=== PATIENT | male | born 1950 | race Asian ===

== ENCOUNTER 2023-02-09 01:09 | Day surgery (SDC) | payer MEDICARE, SELFPAY ==
[2022-12-31 12:29] VITALS: BMI 25.8
--- NOTE | 2023-02-05 09:35 | SUR.PREOP ---
Patient called regarding upcoming procedure. Unable to leave message as his voice mailbox is not set up.
--- NOTE | 2023-02-09 07:24 | P.HP_ITS ---
History of Present Illness History of Present Illness Consent: Risks, benefits, and alternatives have been discussed and questions answered. Patient agrees to proceed with procedure. Chief complaint: neoplasm screening Narrative: Ajit Hoffman is a 72 year old male Presents for screening colonoscopy. Patient's most recent exam 2018 was unremarkable. Patient does have a very distant history of colon polyps. Patient reports that his current weight appetite and bowel movements are normal. Patient denies abdominal pain. He has had no bleeding. Family history is noncontributory. Review of Systems Review of Systems: Review of systems noncontributory. [facility] Social History Social History Smoking status: Never smoker Substance use type: does not use Living arrangements: other Additional living arrangements comments: with sp Meds Home Medications and Allergies Home Medications Medication Instructions Recorded Confirmed Type empagliflozin 10 mg tablet 10 mg PO DAILY 12/31/22 12/31/22 History (Jardiance) lisinopril 10 mg tablet 10 mg PO DAILY 12/31/22 12/31/22 History lovastatin 20 mg tablet 20 mg PO DAILY 12/31/22 12/31/22 History metformin 500 mg tablet 500 mg PO BID 12/31/22 12/31/22 History rivaroxaban 20 mg tablet (Xarelto) 20 mg PO DAILY 12/31/22 12/31/22 History Allergies Allergy/AdvReac Type Severity Reaction Status Date / Time No Known Allergies Allergy Verified 02/09/23 07:23 Exam Narrative: Physical exam reveals patient to be alert. Vital signs stable. HEENT exam is unremarkable. Patient is anicteric. Lungs are clear to auscultation and percussion. Heart is without murmur or extra sounds. Abdomen bowel sounds are present soft nontender with no hepatosplenomegaly. Digital external rectal exam normal. Assessment and Plan Assessment and plan (1) Encounter for screening colonoscopy: Code(s): Z12.11 - Encounter for screening for malignant neoplasm of colon Status: Acute Assessment and Plan: Patient presents today for screening colonoscopy. He appears to be at average risk for colon polyps. Further recommendations may be given after endoscopy.
[2023-02-09 07:25] VITALS: BP 141/85; PULSE 84; RESP 18; TEMP 36.4; O2SAT 100
[2023-02-09] MEDS: LACTATED RINGERS 1,000 ML 150 ML IV CONT (07:33)
[2023-02-09 07:43] LABS: Glucose Point of Care 80 mg/dl (65-105)
--- NOTE | 2023-02-09 07:45 | SUR.PREOP ---
0730: DR MORRISON MADE AWARE PT'S HEART RATE RANGING FROM 40-90s, JUMPING AROUND, PT HAS KNOWN HISTORY OF AFIB, PT DENIES ANY SYMPTOMS OR COMPLICATIONS, DR MORRISON TO SEE PT.
--- NOTE | 2023-02-09 08:15 | P.PNAN_ITS ---
Anes - Initial Pre Proc Eval Procedure: Operation Date: 02/09/23 08:30 Proposed Procedures p Screening Colonoscopy - Robbin Lewis MD Date/Time: 02/09/23 08:15 Surgeon: Robbin Lewis MD Pre Op Diagnosis: neoplasm screening Patient Data Age: 72 Gender: M Height: 1.83 m Weight: 85.3 kg Last Vital Signs Temp 97.6 F 02/09/23 07:25 Pulse 84 02/09/23 07:25 Resp 18 02/09/23 07:25 BP 141/85 H 02/09/23 07:25 Pulse Ox 100 02/09/23 07:25 O2 Del Method Room Air 02/09/23 07:25 Allergies Allergy/AdvReac Type Severity Reaction Status Date / Time No Known Allergies Allergy Verified 02/09/23 07:23 Home Medications Medication Instructions Recorded Confirmed Type empagliflozin 10 mg tablet 10 mg PO DAILY 12/31/22 12/31/22 History (Jardiance) lisinopril 10 mg tablet 10 mg PO DAILY 12/31/22 12/31/22 History lovastatin 20 mg tablet 20 mg PO DAILY 12/31/22 12/31/22 History metformin 500 mg tablet 500 mg PO BID 12/31/22 12/31/22 History rivaroxaban 20 mg tablet (Xarelto) 20 mg PO DAILY 12/31/22 12/31/22 History Laboratory Tests 02/09/23 07:40 POC Capillary Glucose 80 mg/dl (65-105) Patient hx anesthesia problems: none Family hx anesthesia problems: none Results Review: All pre-operative results and documents have been reviewed as part of the pre- operative evaluation. PMFSH Social History Social History Smoking status: Never smoker Substance use type: does not use Living arrangements: other Additional living arrangements comments: with sp Anes - Eval Final PreProcedure Day of Procedure 02/09/23 08:15 Patient weight: normal Heart: irregular rhythm Lungs: clear to auscultation Airway: Mallampati scale class II Neurological: alert and oriented Last oral intake: >/= 8 hours ASA classification: III Emergent: no Anesthetic plan: proceed Anesthesia type and monitoring: general GIVS and standard monitoring Results Review: All pre-operative results and documents have been reviewed as part of the pre- operative evaluation. Informed Consent: The patient's anesthetic plan and its attendant risks and benefits were discussed with the patient/family/POA. Questions were solicited and answers provided to the satisfaction of the patient/family/POA.
[2023-02-09] MEDS: SIMETHICONE ORAL SUSPENSION 20 MG/0.3 ML 30 ML BOTTLE 0.6 ML IRRIGATION (08:37)
[2023-02-09 08:47] VITALS: BP 90/57; PULSE 73; RESP 26; O2SAT 98
[2023-02-09 08:57] VITALS: BP 110/78; PULSE 72; RESP 20; O2SAT 100
[2023-02-09 09:07] VITALS: BP 117/88; PULSE 72; RESP 23; O2SAT 100
== END 2023-02-09 09:16 | disposition home or self-care (01) ==
PROVIDERS: PCP Family Medicine; Visit Provider Internal Medicine Gastroenterology
PROC: 0DJD8ZZ Inspection of Lower Intestinal Tract, Via Natural or Artificial Opening Endoscopic (ICD-10-PCS; CPT 45378; principal; 2023-02-09 08:30)
DX: Z12.11 Encounter for screening for malignant neoplasm of colon (principal); D12.2 Benign neoplasm of ascending colon; K64.8 Other hemorrhoids; Z79.01 Long term (current) use of anticoagulants; Z79.84 Long term (current) use of oral hypoglycemic drugs
CPT/HCPCS: 45385; 82948; 88305; J7120

== ENCOUNTER 2025-03-10 09:34 | Emergency (ER) | payer MEDICARE, SELFPAY ==
--- OUTSIDE RECORDS SUMMARY | 2025-02-15 07:00 | XMS_ITS | Continuity of Care Document ---
Author Organization [facility] Address [address] [place] [address] Phone Care Team Providers Care Public Health Teacher Name Role Phone Orion BROOKS, [facility], [facility] Unavailable Unavailab le Allergies, Adverse Reactions, Alerts Substance Reaction Status Criticality No Known Allergies Active No Inform ation Medications Medication Instructions Dosage Effective Dates (start - stop) Status Comments Xarelto 20 mg tablet TAKE 1 TABLET BY MOUTH EVERY DAY - Active lisinopril 5 mg tablet take 1 tablet by oral route every day 5 MG - Active latanoprost 0.005 % eye drops - Active lovastatin 40 mg tablet - Active Jardiance 10 mg tablet - Active metformin 500 mg tablet - Active Xarelto 20 mg tablet TAKE 1 TABLET BY MOUTH EVERY DAY - No Longer Active Procedures Procedure Date Complex e/m visit add on OFFICE/OUTPATIENT VISIT, EST ELECTROCARDIOGRAM, COMPLETE TTE W/DOPPLER, COMPLETE Results Test Name Date and Time Measure Units Reference Range Abnormal Flag Status Comments Panel Description: Not Available Final [{Url}] <Url iRemMajorVer jazmyne=1 iRemMinorVer jazmyne=5.9.4 seq_no=a18c [id number] [id number] h2zvm1w0 template_nam e=PacsEx>< Path><![CDAT A[[email or web address] [email or web address] om/?wKDmdOnQ rd+1EIdic/Dp 75ZomrOVmnXR I3Sv48qX5xX+ X/cz3vJxglFd Vec/5Sg5H5ff pknERgKP0aNJ DbDWmguEusY/ mM1i6borEr80 9ScX2yA0vxgx cfPs+x6JRPVW ]]></Path></ Url> Final Panel Description: ECHO Unknown Image ECHO 1 Advance Directives Directive Yes / No Effective Date File Name No Information Encounters Encounter Description Practice Location Reason(s) For Visit Diagnoses Date Provider Providers Copied on Encounter OFFICE/OUTPA TIENT VISIT, EST [facility] , [address] [place] [address], [id number] , tel: [phone] [facility] Hedrick annual follow up (chief complaint) Hyperlipidemia, unspecifiedEssential (primary) hypertensionUnspecif ied atrial fibrillation 5 Orionstephany Zavala. [address] [place] [address], [id number] , . tel: [phone] Referring Provider: Lucas Sears, [facility] [address] , [place], [address] . tel:[phone] [facility] , [address] [place] [address], [id number] , tel: [phone] [facility] Hedrick No Information [address] [facility] [address] [place], [place], [id number] , . tel: [phone] Referring Provider: Lucas Sears, [facility] [address], [place], [address] . tel:[phone] [facility] , [address] [place] [address], [id number] , tel: [phone] [facility] Benedicto No Information 5 Orionstephany Zavala. [address] [place], [place], [id number] , . tel: [phone] [facility], [address] [place] [address], [id number] , tel: [phone] [facility] Orthodox No Information 5 [facility] [address] [place], [place], [id number] , . tel: [phone] [facility], [address] [place] [address], [id number] , tel: [phone] [facility] Hed[place] Unspecified atrial fibrillationHyperlip idemia, unspecifiedEssential (primary) hypertension [facility] [address] [place], [place], [id number] , . tel: [phone] Family History Family Member Type Diagnosis Age At Onset No Information Payers Payer name Insurance type Covered republican ID Padmini armstrong(s) [employer] MEDICARE ADVANTAGE [address] [id number] Social History Type Description Quantity Date Captured Comments Alcohol Use Details Unknown Caffeine Use Details Unknown Tobacco Use Status No Information Smoking Status No Information Sex Male Vital Signs Date / Time: Height Weight BMI Pulse Rate Blood Pressure Temperature Respiratory Rate Body Surface Area Head Circumference Head Circ. Percentile Wt./Rogelio. Percentile BMI percentile Pulse Ox Inhaled Ox 12:57 PM 87.997 kg (194.00 lbs) 73 /min 111/83 mm[Hg] 20 /min 98 % Chief Complaint And Reason For Visit From encounter dated '02/15/2025 13:00'. annual follow up (chief complaint) Reason For Referral Reason For Referral No Information Plan Of Treatment Date Type Action Status Appointment Ajit Hoffman BOOKED History Of Present Illness Encounter Date Complaint History Of Prese nt Illness annual follow up Functional Status Date Functional Assessmen t No Information Instructions Date Instruction Additional Infor mation No Information Assessments Type Assessment Date assessment Hyperlipidemia, unspecified assessment Essential (primary) hypertension assessment Unspecified atrial fibrillation Patient Care Teams Name Effective Dates (start - stop) Status Members No Information
[2025-03-10 09:42] VITALS: BP 154/84; PULSE 94; RESP 16; TEMP 36.4; O2SAT 100
--- NOTE | 2025-03-10 09:55 | PC.NURSE ---
notified MD Patel of patient post void residual being [address] díaz catheter at this time.
[2025-03-10 09:56] LABS: Add Urine Microscopic? NO; Appearance Urine Clear (Clear); Glucose Urine UA 3+ mg/dL (Negative); Leukocyte Esterase Ur Negative LEU/UL (Negative); Nitrate Urine Negative (Negative); Specific Grav Ur 1.015 (1.001-1.035)
--- OUTSIDE RECORDS SUMMARY | 2025-03-10 09:56 | XMS_ITS | Data Portability ---
Author Organization [place] [employer], Main Office Address [address] [place] [address] Assessment Encounter Date Assessment Date Assessment LastModified by Organization Details LastModified Time 05/04/2024 05/04/2024 Assessment: Early REM onset Mod OSAHS, AHI = 21 Iron deficiency PLMD Plan: The following were reviewed and explained to the patient: [facility] home sleep study 10/24/21 AHI = 4.8 [facility] split sleep study 12/04/21 sleep onset = 12 minutes, REM onset = 80 minutes, AHI = 21, REM AHI = 32, ResMed medium AitFit F20 full face mask @ 10 cmH2O, PLMI = 32 BUN 07/15/23 24 mg% Ferritin 07/15/23 67 ng/mL Ferritin 10/18/23 107 ng/mL Ferritin 05/04/24 240 ng/mL Non-pharmacologic therapy options for periodic limb movement disorder include avoidance of aggravating drugs and substances, mental alerting activities, short daily hemodialysis for patients in renal failure, exercise, leg massage, stretching calf muscles, use of a weighted blanket and applied heat. Patient will cut down on caffeine intake. Creatinine, Vitamin E, Vitamin B12, RBC folate, Iron, TIBC, ESR, Magnesium, Hgb and Hct levels are within normal limits. Patient will continue FeSO4 325 mg + Vit C 500 mg but decrease from every other day to twice a week to keep the ferritin > 75 ng/ml. Check ferritin one week before return. We will hold off on dopaminergic therapy for now. PAP compliance downloaded and interpreted x 20 minutes. Data reviewed and explained to the patient. Average apnea/hypopnea index (AHI) is 0.9. Patient used PAP > 4 hours 65% of the time. PAP is set at 10 cmH2O. PAP will remain at 10 cmH2O. Keep ramp start at 5 cmH2O. Keep ramp duration at 30 minutes. Oxygen supplementation: none Keep EPR +3 time study observer. Keep humidifier level at 5. Keep tube temperature at 82 F. Patient is benefiting from PAP therapy. Encouraged patient to maintain PAP use more than 70% of the time. Statement of PAP use and benefits will be sent to the home care store. Educated the patient on problems and solutions associated with positive airway pressure (PAP) use. Difficulty tolerating pressure, mask leaks, intolerance of interface, nasal congestion, claustrophobic response, dry mouth, and unintentional mask removal during sleep were covered. Patient's mask leaks air. We will ensure the mask is situated properly. Patient can wear protective eye covering during sleep, and the mask can be resized. Dry mouth is a normal occurrence for people who just start out on PAP therapy because they are not used to air blowing in to the throat to hold open. Dry mouth is exacerbated for people who wear nasal PAP mask and whose jaw drops open during sleep. Not only does this create a much less efficient therapy because of leakage, it also causes dry mouth. There are a couple solutions to help prevent this type of problem. A simple solution would be to wear a chinstrap which essentially holds the jaw in place. A second solution would be a switch to a full face mask which covers both the nose and mouth. Although this is another easy solution, using a full face mask for some could seem claustrophobic or confining. There is no silver bullet solution as no single mask is right for everybody. Sometimes it takes a bit of experimentation to find a PAP mask which best meets the patient's needs as well as fits comfortably. Another tactic is to use a humidifier on your PAP machine. Most new PAP machines have integrated humidifiers. Humidification is williamson when dealing with symptoms of dry mouth because the humidifier can supply both warm and room temperate air. Even a small amount of humidity in the airflow will help nasal passages to stay hydrated. If a person is using both a full face mask and a PAP machine with a heated humidifier and is still experiencing dry mouth, an ill-fitted PAP mask might be causing the problem. Leakage can be caused by a mask that is to large or small, the wrong style mask, the cushion is degraded or simply because the mask's straps aren't adjusted correctly. If leakage occurs, dry air from the room can leak in while humidification escapes. The result is reduced humidification within the circuit and resulting in dry throat and mouth. Finally, beyond factors involving the PAP machine and mask, dry mouth can also be caused or worsened by dehydration. The general recommendation to during eight 8 oz. glasses of water a day might be too little for many people. When people drink large amounts of coffee or other caffeine beverages, or sweat a lot during the day, making sure to rehydrate is an important part of PAP therapy. Provided the patient with a list of local home care stores where positive airway pressure (PAP) units, accoutrement, and services are available. Home care store selection is based on patient's insurance carrier. Patient will setup an appointment with [facility] for supplies and pressure adjustments. A major predictor of success with use of PAP is follow-up with both the respiratory supplier and the treating physician. The download results can show the treating physician information about adherence to treatment, residual AHI while on treatment and presence of large mask leakage. This information is especially helpful if the patient has residual sleepiness despite treatment. General information on sleep disordered breathing, evaluation of sleep disordered breathing, treatment with PAP therapy, and living with PAP therapy were covered. We discussed with the patient the impact of weight on: Sleep disordered breathing DM We discussed with the patient the benefit of PAP therapy on: Sleep disordered breathing Glaucoma Atrial fibrillation Mild TR Mod RVE DM Educated the patient on sleep hygiene measures. Relaxing rituals to rest easy, understanding foods with positive and negative impact on sleep, creating a peaceful sleep environment, timing of exercise, using herbal sleep aids, and practicing sleep-friendly meditation were covered. To determine how much sleep is needed, the patient will assess where he falls on the spectrum, examine what lifestyle factors such as work schedules and stress are affecting the quality and quantity of sleep. In general, adults need 7-9 hours of sleep. Educated the patient regarding foods that promote sleep. These include but are not limited to cherries, bananas, toast, oatmeal, and warm milk. Educated the patient regarding foods and drinks to avoid before bedtime. These include but are not limited to aged cheese, chocolate, spicy foods, tomato-based sauces, soy, ginseng tea and processed meat. Advocated influenza vaccination annually and pneumonia vaccination HERIBERTO. Advocated weight loss through diet and exercise. Patient's ideal body weight according to height and gender is up to 185 lbs. Encouraged patient to adjust caloric intake to maintain/achieve ideal body weight, emphasizing on fruits, vegetables, whole grains, and fat-free or low-fat products. These include lean meats, poultry, fish, beans, eggs, and nuts and foods that are low in saturated fats, trans-fats, cholesterol, salt (sodium), and glycemic index. Stressed the importance of regular exercise up to the patient's capacity limits. In this case, we recommend 20 min daily walking, 2 days a week of resistance training. Patient to monitor BP daily and bring records to PCP for further management. Follow-up: 6 months, October 2024 [email or web address] Not available 05/05/2024 14:03:22 10/09/2024 10/09/2024 Patient was not seen by the provider. [email or web address] Not available 10/09/2024 14:23:50 11/02/2024 11/02/2024 Assessment: Early REM onset Mod OSAHS, AHI = 21 Iron deficiency PLMD Plan: The following were reviewed and explained to the patient: [facility] home sleep study 10/24/21 AHI = 4.8 [facility] split sleep study 12/04/21 sleep onset = 12 minutes, REM onset = 80 minutes, AHI = 21, REM AHI = 32, ResMed medium AitFit F20 full face mask @ 10 cmH2O, PLMI = 32 BUN 07/15/23 24 mg% Ferritin 07/15/23 67 ng/mL Ferritin 10/18/23 107 ng/mL Ferritin 05/04/24 240 ng/mL Ferritin 10/06/24 224 mg/mL Non-pharmacologic therapy options for periodic limb movement disorder include avoidance of aggravating drugs and substances, mental alerting activities, short daily hemodialysis for patients in renal failure, exercise, leg massage, stretching calf muscles, use of a weighted blanket and applied heat. Patient will cut down on caffeine intake. Creatinine, Vitamin E, Vitamin B12, RBC folate, Iron, TIBC, ESR, Magnesium, Hgb and Hct levels are within normal limits. Patient will continue FeSO4 325 mg + Vit C 500 mg but decrease from twice a week to once a week to keep the ferritin > 75 ng/ml. Check ferritin one week before return. We will hold off on dopaminergic therapy for now. PAP compliance downloaded and interpreted x 20 minutes. Data reviewed and explained to the patient. Average apnea/hypopnea index (AHI) is 1.7. Patient used PAP > 4 hours 91% of the time. PAP is set at 10 cmH2O. PAP will remain at 10 cmH2O. Keep ramp start at 5 cmH2O. Keep ramp duration at 30 minutes. Oxygen supplementation: none Keep EPR +3 time study observer. Increase humidifier level from 5 to 6. Decrease tube temperature at 82 to 76 F. Patient is benefiting from PAP therapy. Encouraged patient to maintain PAP use more than 70% of the time. Statement of PAP use and benefits will be sent to the home care store. Educated the patient on problems and solutions associated with positive airway pressure (PAP) use. Difficulty tolerating pressure, mask leaks, intolerance of interface, nasal congestion, claustrophobic response, dry mouth, and unintentional mask removal during sleep were covered. Patient's mask leaks air. We will ensure the mask is situated properly. Patient can wear protective eye covering during sleep, and the mask can be resized. Dry mouth is a normal occurrence for people who just start out on PAP therapy because they are not used to air blowing in to the throat to hold open. Dry mouth is exacerbated for people who wear nasal PAP mask and whose jaw drops open during sleep. Not only does this create a much less efficient therapy because of leakage, it also causes dry mouth. There are a couple solutions to help prevent this type of problem. A simple solution would be to wear a chinstrap which essentially holds the jaw in place. A second solution would be a switch to a full face mask which covers both the nose and mouth. Although this is another easy solution, using a full face mask for some could seem claustrophobic or confining. There is no silver bullet solution as no single mask is right for everybody. Sometimes it takes a bit of experimentation to find a PAP mask which best meets the patient's needs as well as fits comfortably. Another tactic is to use a humidifier on your PAP machine. Most new PAP machines have integrated humidifiers. Humidification is williamson when dealing with symptoms of dry mouth because the humidifier can supply both warm and room temperate air. Even a small amount of humidity in the airflow will help nasal passages to stay hydrated. If a person is using both a full face mask and a PAP machine with a heated humidifier and is still experiencing dry mouth, an ill-fitted PAP mask might be causing the problem. Leakage can be caused by a mask that is to large or small, the wrong style mask, the cushion is degraded or simply because the mask's straps aren't adjusted correctly. If leakage occurs, dry air from the room can leak in while humidification escapes. The result is reduced humidification within the circuit and resulting in dry throat and mouth. Finally, beyond factors involving the PAP machine and mask, dry mouth can also be caused or worsened by dehydration. The general recommendation to during eight 8 oz. glasses of water a day might be too little for many people. When people drink large amounts of coffee or other caffeine beverages, or sweat a lot during the day, making sure to rehydrate is an important part of PAP therapy. Provided the patient with a list of local home care stores where positive airway pressure (PAP) units, accoutrement, and services are available. Home care store selection is based on patient's insurance carrier. Patient will setup an appointment with [facility] for supplies and pressure adjustments. A major predictor of success with use of PAP is follow-up with both the respiratory supplier and the treating physician. The download results can show the treating physician information about adherence to treatment, residual AHI while on treatment and presence of large mask leakage. This information is especially helpful if the patient has residual sleepiness despite treatment. General information on sleep disordered breathing, evaluation of sleep disordered breathing, treatment with PAP therapy, and living with PAP therapy were covered. We discussed with the patient the impact of weight on: Sleep disordered breathing DM We discussed with the patient the benefit of PAP therapy on: Sleep disordered breathing Glaucoma Atrial fibrillation Mild TR Mod RVE DM Educated the patient on sleep hygiene measures. Relaxing rituals to rest easy, understanding foods with positive and negative impact on sleep, creating a peaceful sleep environment, timing of exercise, using herbal sleep aids, and practicing sleep-friendly meditation were covered. To determine how much sleep is needed, the patient will assess where he falls on the spectrum, examine what lifestyle factors such as work schedules and stress are affecting the quality and quantity of sleep. In general, adults need 7-9 hours of sleep. Educated the patient regarding foods that promote sleep. These include but are not limited to cherries, bananas, toast, oatmeal, and warm milk. Educated the patient regarding foods and drinks to avoid before bedtime. These include but are not limited to aged cheese, chocolate, spicy foods, tomato-based sauces, soy, ginseng tea and processed meat. Advocated influenza vaccination annually and pneumonia vaccination HERIBERTO. Advocated weight loss through diet and exercise. Patient's ideal body weight according to height and gender is up to 185 lbs. Encouraged patient to adjust caloric intake to maintain/achieve ideal body weight, emphasizing on fruits, vegetables, whole grains, and fat-free or low-fat products. These include lean meats, poultry, fish, beans, eggs, and nuts and foods that are low in saturated fats, trans-fats, cholesterol, salt (sodium), and glycemic index. Stressed the importance of regular exercise up to the patient's capacity limits. In this case, we recommend 20 min daily walking, 2 days a week of resistance training. Patient to monitor BP daily and bring records to PCP for further management. Follow-up: 9 months, July 2025 [email or web address] Not available 11/02/2024 09:04:17 Plan of Treatment Reminders Order Date Submit Date Provider Last Modified By Organization Details Last Modified Time Details Appointments Follow Up 2025 02:30P Melany Vyas NP Not available Not available Not available Any 15 2025 07:30A Melany Blackwood MD Not available Not available Not available Lab lipid panel, serum 2024 025 [place], [address], [place], [address], 01/01/2025 08:49:45 comprehen zohrae metabolic 1998 panel, serum or plasma 2024 025 [facility], [address], [place], [address], 11/29/2024 12:26:35 TSH + free T4, serum 2024 025 [facility], [address], [place], [address], 11/29/2024 12:26:36 HbA1c (hemoglob in A1c), blood 2024 025 [facility], [address], [place], [address], 11/29/2024 12:26:35 CBC w/ auto diff 2024 025 [facility], [address], [place], [address], 01/01/2025 08:49:45 ferritin, serum or plasma [address] (Lab), [address] [place], [address], 11/02/2024 09:00:35 ferritin, serum or plasma 2024 025 [facility] (Lab), [address] [place], [address], 10/09/2024 09:44:08 Referral None recorded. Procedures None recorded. Surgeries None recorded. Imaging None recorded. Medication Orders ferrous sulfate 325 mg (65 mg iron) tablet 2024 025 [place] [facility], [address], [address], [place], [place], [id number], 11/02/2024 09:00:37 Vitamin C 500 mg tablet 2024 025 CHARLI [facility], [address], [address], [place], [place], [id number], 11/02/2024 09:00:37 ferrous sulfate 325 mg (65 mg iron) tablet 2024 025 [place] [facility], [address], [address], [place], [place], [id number], 05/05/2024 14:04:03 Vitamin C 500 mg tablet 2024 025 CHARLI [facility], [address], [address], [place], [place], [id number], 05/05/2024 14:04:03 Patient TargetsNo targets recorded. Patient Instructions Encounter Date Encounter Id Patient Instructions Last Modified By Organization Details Last Modified Time 10/09/2024 [id number] dementia rating scale-2* CHARLI Not available 10/09/2024 21:22:35 advance care planning: care instructions [email or web address] Not available 10/09/2024 14:23:53 advance directiv es: care instructions [email or web address] Not available 10/09/2024 14:23:53 [place] Advance Directives [email or web address] Not available 10/09/2024 14:23:53 Personalized a lt Plan and Screening Recommendations Advance Directives - Do you have one? Advance Directives - Do we have your advance directive on file in your health record? Primary Prevention/Interven tion (prevents or decreases the chance of common diseases from occurring) Smoking Risk: Alcohol Misuse Screening: Weight: Physical activity: Nutrition: Fall Risk (screened today): Vaccines Pneumococcal: Influenza: Chronic Disease Risks Stroke: Active diagnosis, Continue current treatment plan Heart Attack: Active diagnosis, Continue current treatment plan Clogging of the Arteries: Active diagnosis, Continue current treatment plan Diabetes: Active diagnosis, Continue current treatment plan Secondary Prevention/Interven tion (detects treatable diseases before they may cause symptoms, disability, or ) Prostate Cancer Screening: Colon Cancer Screening: Date Screening Last Performed: Eye Disease Screening: Your next exam in: Dementia Risk: Depression Screening: Active diagnosis, Continue current treatment plan Not available 10/09/2024 13:59:16 11/20/2024 [id number] dementia rating scale-2* [email or web address] Not available 11/20/2024 15:39:41 multi-dimensiona l health assessment questionnaire* CHARLI Not available 11/20/2024 15:44:37 Reason for Referral None Reported. Results Created Date Observation Date Name Description Value Unit Range Abnormal Flag Note LastModifiedBy Organization Detail LastModifiedTime 05/04/1905/05/2024 KATJA TIN ferritin 240 NG/mL 30-400 normal Not Available [facility] ([facility]) [address] [facility], [place], [address], 05/05/2024 12:36:41 10/07/19 25 10/07/2024 KATJA TIN ferritin 224 NG/mL 30-400 normal Not Available [facility] ([facility]) [address] [place], [address], 10/07/2024 04:36:06 03/05/20 25 03/06/2025 TSH+F REE T4 TSH 5.300 uIU/m L 0.450- 4.500 above high normal Not Available [facility] ([facility]) [address] [facility] [place], [address], 03/06/2025 03:08:51 03/05/2003/06/2025 TSH+F REE T4 T4,free(dire ct) 1.46 NG/dL 0.82-1 .77 normal Not Available [facility] ([facility]) [address] [place], [address], 03/06/2025 03:08:51 03/05/20 25 03/05/2025 CBC WITH DIFFE RENTI AL/PL ATELE T WBC 4.9 x10e3 /uL 3.4-10 .8 normal Not Available [facility] ([facility]) [address] [place], [address], 03/06/2025 03:08:52 03/05/20 25 03/05/2025 CBC WITH DIFFE RENTI AL/PL ATELE T RBC 5.23 x10e6 /uL 4.14-5 .80 normal Not Available [facility] ([facility]) [address] [place], [address], 03/06/2025 03:08:52 03/05/20 25 03/05/2025 CBC WITH DIFFE RENTI AL/PL ATELE T hemoglobin 15.8 g/dL 13.0-1 7.7 normal Not Available [facility] ([facility]) [address] [place], [address], 03/06/2025 03:08:52 03/05/20 25 03/05/2025 CBC WITH DIFFE RENTI AL/PL ATELE T hematocrit 49.1 % 37.5-5 1.0 normal Not Available [facility] ([facility]) [address] [facility], [place], [address], 03/06/2025 03:08:52 03/05/20 25 03/05/2025 CBC WITH DIFFE RENTI AL/PL ATELE T MCV 94 fL 79-97 normal Not Available [facility] ([facility]) [address] [facility], [place], [address], 03/06/2025 03:08:52 03/05/20 25 03/05/2025 CBC WITH DIFFE RENTI AL/PL ATELE T MCH 30.2 pg 26.6-3 3.0 normal Not Available [facility] ([facility]) [address] [facility], [place], [address], 03/06/2025 03:08:52 03/05/20 25 03/05/2025 CBC WITH DIFFE RENTI AL/PL ATELE T MCHC 32.2 g/dL 31.5-3 5.7 normal Not Available [facility] ([facility]) [address] [place], [address], 03/06/2025 03:08:52 03/05/20 25 03/05/2025 CBC WITH DIFFE RENTI AL/PL ATELE T RDW 12.2 % 11.6-1 5.4 Not Available [facility] ([facility]) [address] [place], [address], 03/06/2025 03:08:52 03/05/20 25 03/05/2025 CBC WITH DIFFE RENTI AL/PL ATELE T platelets 235 x10e3 /uL 150-45 0 normal Not Available [facility] ([facility]) [address] [place], [address], 03/06/2025 03:08:52 03/05/20 25 03/05/2025 CBC WITH DIFFE RENTI AL/PL ATELE T neutrophils 48 % not estab. normal Not Available [facility] ([facility]) [address] [facility], [place], [address], 03/06/2025 03:08:52 03/05/20 25 03/05/2025 CBC WITH DIFFE RENTI AL/PL ATELE T lymphs 35 % not estab. normal Not Available [facility] ([facility]) [address] [facility], [place], [address], 03/06/2025 03:08:52 03/05/20 25 03/05/2025 CBC WITH DIFFE RENTI AL/PL ATELE T monocytes 9 % not estab. normal Not Available [facility] ([facility]) [address] [facility], [place], [address], 03/06/2025 03:08:52 03/05/20 25 03/05/2025 CBC WITH DIFFE RENTI AL/PL ATELE T eos 7 % not estab. normal Not Available [facility] ([facility]) [address] [facility], [place], [address], 03/06/2025 03:08:52 03/05/20 25 03/05/2025 CBC WITH DIFFE RENTI AL/PL ATELE T basos 1 % not estab. normal Not Available [facility] ([facility]) [address] [facility], [place], [address], 03/06/2025 03:08:52 03/05/20 25 03/05/2025 CBC WITH DIFFE RENTI AL/PL ATELE T immature cells [employer] Not Available [facility] ([facility]) [address] [facility], [place], [address], 03/06/2025 03:08:52 03/05/20 25 03/05/2025 CBC WITH DIFFE RENTI AL/PL ATELE T neutrophils (absolute) 2.4 x10e3 /uL 1.4-7. 0 normal Not Available [facility] ([facility]) [address] [facility], [place], [address], 03/06/2025 03:08:52 03/05/20 25 03/05/2025 CBC WITH DIFFE RENTI AL/PL ATELE T lymphs (absolute) 1.7 x10e3 /uL 0.7-3. 1 normal Not Available [facility] ([facility]) [address] [facility], [place], [address], 03/06/2025 03:08:52 03/05/20 25 03/05/2025 CBC WITH DIFFE RENTI AL/PL ATELE T monocytes(ab solute) 0.5 x10e3 /uL 0.1-0. 9 normal Not Available [facility] ([facility]) [address] [facility], [place], [address], 03/06/2025 03:08:52 03/05/20 25 03/05/2025 CBC WITH DIFFE RENTI AL/PL ATELE T eos (absolute) 0.3 x10e3 /uL 0.0-0. 4 normal Not Available [facility] ([facility]) [address] [facility], [place], [address], 03/06/2025 03:08:52 03/05/20 25 03/05/2025 CBC WITH DIFFE RENTI AL/PL ATELE T baso (absolute) 0.0 x10e3 /uL 0.0-0. 2 normal Not Available [facility] ([facility]) [address] [place], [address], 03/06/2025 03:08:52 03/05/20 25 03/05/2025 CBC WITH DIFFE RENTI AL/PL ATELE T immature granulocytes 0 % not estab. Not Available [facility] ([facility]) [address] [facility] [place], [address], 03/06/2025 03:08:52 03/05/20 25 03/05/2025 CBC WITH DIFFE RENTI AL/PL ATELE T immature grans (abs) 0.0 x10e3 /uL 0.0-0. 1 Not Available [facility] ([facility]) [address] [facility], [place], [address], 03/06/2025 03:08:52 03/05/20 25 03/05/2025 CBC WITH DIFFE RENTI AL/PL ATELE T NRBC INSPECTOR AND UNLOADER Not Available [facility] ([facility]) [address] [facility], [place], [address], 03/06/2025 03:08:52 03/05/2003/05/2025 CBC WITH DIFFE RENTI AL/PL ATELE T hematology comments: INSPECTOR AND UNLOADER Not Available [facility] ([facility]) [address] [facility], [place], [address], 03/06/2025 03:08:52 03/05/20 25 03/06/2025 COMP. METAB OLIC PANEL (12) glucose 105 mg/dL 70-99 above high normal Not Available [facility] ([facility]) [address] [facility], [place], [address], 03/06/2025 03:08:52 03/05/20 25 03/06/2025 COMP. METAB OLIC PANEL (12) BUN 32 mg/dL 8-27 above high normal Not Available [facility] ([facility]) [address] [facility], [place], [address], 03/06/2025 03:08:52 03/05/20 25 03/06/2025 COMP. METAB OLIC PANEL (12) creatinine 1.37 mg/dL 0.76-1 .27 above high normal Not Available [facility] ([facility]) [address] [facility], [place], [address], 03/06/2025 03:08:52 03/05/20 25 03/06/2025 COMP. METAB OLIC PANEL (12) eGFR 55 mL/mi n/1.7 3 >59 below low normal Not Available [facility] ([facility]) [address] [place], [address], 03/06/2025 03:08:52 03/05/20 25 03/06/2025 COMP. METAB OLIC PANEL (12) BUN/creatini ne ratio 23 10-24 normal Not Available [facility] ([facility]) [address] [place], [address], 03/06/2025 03:08:52 03/05/20 25 03/06/2025 COMP. METAB OLIC PANEL (12) sodium 138 mmol/ L 134-14 4 normal Not Available [facility] ([facility]) [address] [place], [address], 03/06/2025 03:08:52 03/05/20 25 03/06/2025 COMP. METAB OLIC PANEL (12) potassium 4.8 mmol/ L 3.5-5. 2 normal Not Available [facility] ([facility]) [address] [place], [address], 03/06/2025 03:08:52 03/05/20 25 03/06/2025 COMP. METAB OLIC PANEL (12) chloride 102 mmol/ L 96-106 normal Not Available [facility] ([facility]) [address] [facility] [place], [address], 03/06/2025 03:08:52 03/05/20 25 03/06/2025 COMP. METAB OLIC PANEL (12) calcium 10.1 mg/dL 8.6-10 .2 normal Not Available [facility] ([facility]) [address] [facility] [place], [address], 03/06/2025 03:08:52 03/05/20 25 03/06/2025 COMP. METAB OLIC PANEL (12) protein, total 7.1 g/dL 6.0-8. 5 normal Not Available [facility] ([facility]) [address] [place], [address], 03/06/2025 03:08:52 03/05/20 25 03/06/2025 COMP. METAB OLIC PANEL (12) albumin 4.6 g/dL 3.8-4. 8 normal Not Available [facility] ([facility]) [address] [place], [address], 03/06/2025 03:08:52 03/05/20 25 03/06/2025 COMP. METAB OLIC PANEL (12) globulin, total 2.5 g/dL 1.5-4. 5 Not Available [facility] ([facility]) [address] [place], [address], 03/06/2025 03:08:52 03/05/20 25 03/06/2025 COMP. METAB OLIC PANEL (12) bilirubin, total 0.5 mg/dL 0.0-1. 2 normal Not Available [facility] ([facility]) [address] [place], [address], 03/06/2025 03:08:52 03/05/20 25 03/06/2025 COMP. METAB OLIC PANEL (12) alkaline phosphatase 61 IU/L 47-123 normal Not Available [facility] ([facility]) [address] [place], [address], 03/06/2025 03:08:52 03/05/20 25 03/06/2025 COMP. METAB OLIC PANEL (12) AST (SGOT) 20 IU/L 0-40 normal Not Available [facility] ([facility]) [address] [place], [address], 03/06/2025 03:08:52 03/05/20 25 03/06/2025 LIPID PANEL cholesterol, total 176 mg/dL 100-19 9 normal Not Available [facility] ([facility]) [address] [place], [address], 03/06/2025 03:08:53 03/05/20 25 03/06/2025 LIPID PANEL triglyceride s 76 mg/dL 0-149 normal Not Available [facility] ([facility]) [address] [place], [address], 03/06/2025 03:08:53 03/05/20 25 03/06/2025 LIPID PANEL HDL cholesterol 46 mg/dL >39 normal Not Available [facility] ([facility]) [address] [place], [address], 03/06/2025 03:08:53 03/05/20 25 03/06/2025 LIPID PANEL VLDL cholesterol david 14 mg/dL 5-40 Not Available [facility] ([facility]) [address] [place], [address], 03/06/2025 03:08:53 03/05/20 25 03/06/2025 LIPID PANEL LDL [facility] 116 mg/dL 0-99 above high normal Not Available [facility] (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) [address] [place], [address], 03/06/2025 03:08:53 03/05/20 25 03/05/2025 HEMOG LOBIN A1C hemoglobin A1C 6.1 % 4.8-5. 6 above high normal Predi abete s: 5.7 - 6.4 Diabe hallie: >6.4 Glyce choco contr ol for adult s with diabe hallie: <7.0 Not Available [facility] ([facility]) [address] [place], [address], 03/06/2025 03:08:53 11/2002/15/2025 imagi ng/di hardikos tic resul t No observ ation record ed. [facility] [address], [place], [address], 02/15/2025 18:04:55 Result Notes None recorded. Problems Name Problem SNOMED Code Status Onset Date Resolution Date Notes Provider Name and Address Organization Details Recorded Time Herpes zoster 8488184 Active Not Available [facility] 3 02:06:21 Atrial fibrillati on 05210847 Active Not Available [facility] 3 02:06:21 Hyperlipid emia 76266589 Active Not Available [facility] 3 02:06:21 Hyperglyce kam 47241122 Completed Not Available [facility] 3 06:02:42 Onychomyco sis 598586119 Active 2020 Not Available [facility] 3 02:06:21 Obstructiv e sleep apnea syndrome 01530539 Active 2022 Not Available [facility] 3 02:06:21 Essential hypertensi on 45926849 Active 2022 Not Available [facility] 3 02:06:21 Diabetes mellitus 89082359 Active 2022 Not Available [facility] 3 02:06:21 Periodic limb movement disorder 084995820 Active 2023 Pancho Blackwood MD [address] [place] [address], [place], [address] , [facility] [employer] 4 09:39:52 Iron deficiency 71120276 Active 2023 Pancho Blackwood MD [address], [address], [place], [address] , [facility] 4 08:53:25 Inadequate intake of vitamin D and/or vitamin D derivative 865133502 Active 2023 JOHNSON Goff [address], [address], [place], [address] , [facility] [employer] 4 09:16:58 Notes:Medical History: Glauc rodney Early REM onset Moderate OSAHS, AHI = 21, 12/04/21, on CPAP c/o IVRC Atrial fibrillation on Xarelto EF 55% Mild TR Mod RVE Mod CASSIDY Hypothyroidism T2DM with microalbuminuria Iron deficiency PLMD Herpes zoster Onychomycosis Procedure History: Bilateral cataract extraction with IOL 2013 Colonoscopy with tubular adenoma excision 2022 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 Procedures Surgical History Date Name Laterality Status Provider Name and Address Organization Details Recorded Time 5 Medicare Wellness CPT Code, subsequent completed Jimi Shell, RMA [facility] 11/20/2024 15:04:25 5 Medicare Wellness CPT Code, subsequent completed Jimi Shell, RMA [facility] 10/09/2024 13:59:17 4 Medicare Wellness CPT Code, subsequent completed Shahla Andersen RN [facility] 10/18/2023 15:56:44 3 colonoscopy completed Divine Guardado RN [facility] 02/09/2023 10:05:41 3 Medicare Wellness CPT Code, subsequent completed Isabel Smith MD [address] [place] [address], [address], [facility] 10/14/2022 09:03:08 Imaging Results None recorded. Procedure Notes None recorded. Medical Equipment None Reported. Allergies No known drug allergies Medications Name Sig Start Date Stop Date Status Note LastModified by Organization Details LastModified Time Prescriptio n - Prior Authorizati on Request active Not Available Not Available N ot Available latanoprost 0.005 % eye drops active Not Available Not Available Not Available metformin 500 mg tablet TAKE 2 TABLET BY MOUTH TWICE DAILY WITH FOOD 2024 active Not Available Not Available Not Avai lable Vitamin C 500 mg tablet Take 1 tablet every week by oral route. 2024 active Not Available Not Available Not Avai lable aspirin 650 mg tablet,kaleigh yed release Take 1 tablet every 6 hours by oral route. 10/08 completed Not Available Not Available Not Available lovastatin 40 mg tablet 05/04 completed Not Available Not Available Not Available peg-electro lyte solution 420 gram oral solution 10/27 completed Not Available Not Available Not Available ferrous sulfate 325 mg (65 mg iron) tablet Take 1 tablet every week by oral route. 2024 active Not Available Not Available Not Avai lable lisinopril 10 mg tablet TAKE 1 TABLET BY MOUTH DAILY 2023 active Not Available Not Available Not Avai lable pravastatin 20 mg tablet Take 1 tablet every day by oral route at bedtime. 08/18 completed Not Available Not Available Not Available lisinopril 5 mg tablet 05/04 completed Not Available Not Available Not Available gabapentin 100 mg capsule Take 1 capsule 3 times a day by oral route as needed. 12/10 completed Not Available Not Available Not Available lovastatin 20 mg tablet TAKE 1 TABLET BY MOUTH DAILY active Not Available Not Available No t Available sodium,pota ssium,mag sulfates 17.5 gram-3.13 gram-1.6 gram oral soln TAKE DIRECTED 07/01 completed Not Available Not Available Not Available Lumigan 0.01 % eye drops 10/14 completed Not Available Not Available Not Available Xarelto 20 mg tablet TAKE 1 TABLET BY MOUTH EVERY DAY active Not Available Not Available No t Available Jardiance 10 mg tablet 1 po qday active Not Available Not Available No t Available Fluzone High-Dose 8256-9343 (PF) 180 mcg/0.5 mL intramuscul ar syringe 10/27 completed Not Available Not Available Not Available Fluzone High-Dose (PF) 180 mcg/0.5 mL intramuscul ar syringe PHARMACIS T ADMINISTE RED IMMUNIZAT ION ADMINISTE RED AT TIME OF DISPENSIN G 10/27 completed Not Available Not Available Not Available ID NOW COVID-19 Test Kit DIRECTED active Not Available Not Available No t Available Vitals Date Recorded Body height Body mass index (BMI) Body weight Body temperature Heart rate Oxygen saturation Systolic And Diastolic Provider Name and Address Organization Details Last Updated DateTime 5 180.34 cm 26.9 kg/m2 79218.3 3 g 97.3 [degF] 78 /min 97 % 136/80 mm[Hg] Divine Guardado RN [facility] [employer] 5 10:10:04 Date Recorded Heart rate Respiratory rate Provider N tameka and Address Organization Details Last Updated DateTime 05/04/2024 73 /min 15 /min Pancho Blackwood MD [address], [facility] [address], [place], [address], [facility] [employer] 05/04/2024 08:48:11 Date Recorded Body height Body mass index (BMI) Body weight Body temperature Heart rate Oxygen saturation Systolic And Diastolic Provider Name and Address Organization Details Last Updated DateTime 180.34 cm 26.9 kg/m2 43341.3 3 g 97.3 [degF] 73 /min 98 % 118/68 mm[Hg] Zenaida Andrade MA [facility] [employer] 5 08:25:44 Date Recorded Body height Body mass index (BMI) Body weight Body temperature Heart rate Oxygen saturation Systolic And Diastolic Provider Name and Address Organization Details Last Updated DateTime 5 180.34 cm 25.8 kg/m2 75302.5 9 g 98.3 [degF] 80 /min 98 % 120/62 mm[Hg] CHANTE Maher [place] [employer] [facility] [employer] 14:11:34 Date Recorded Heart rate Heart rate Respiratory rate Provider Name and Address Organization Details Last Updated DateTime 11/02/2024 61 /min 61 /min 14 /min Pancho Blackwood MD [address], [place], [address], [facility] [employer] 11/02/2024 09:02:00 Date Recorded Body height Body mass index (BMI) Body weight Body temperature Oxygen saturation Systolic And Diastolic Provider Name and Address Organization Details Last Updated DateTime 5 180.34 cm 26.5 kg/m2 82175.5 5 g 98.1 [degF] 98 % 110/64 mm[Hg] Sarai Gipson MA [facility] [employer] 5 08:39:54 Date Recorded Body height Body mass index (BMI) Body weight Body temperature Heart rate Oxygen saturation Systolic And Diastolic Provider Name and Address Organization Details Last Updated DateTime 08/25/202 5 180.34 cm 26.8 kg/m2 76227.7 4 g 97.2 [degF] 94 /min 98 % 110/70 mm[Hg] CHANTE Maher [place] [employer] [facility] 5 15:12:38 Social History Question Answer Notes LastModified by Organizat ion Details LastModified Time Tobacco Smoking Status Former Smoker Not Available [facility] 05/27/2022 05:55:00 What Is Your Level Of Caffeine Consumption? Occasional [id number] Information not available 05/27/2022 How Much Tobacco Do You Chew? None [id number] Information not available 05/27/2022 In The 14 Days Before Symptom Onset, Have You Had Close Contact With A Laboratory-confi rmed COVID-19 While That Case Was Ill? No [id number] Information not available 05/27/2022 In The 14 Days Before Symptom Onset, Have You Had Close Contact With A Person Who Is Under Investigation For COVID-19 While That Person Was Ill? No [id number] Information not available 05/27/2022 What Type Of Diet Are You Following? REGULAR [id number] Information not available 05/27/2022 Do You Have An Electrostatic Air Filter? No Information not available 11/04/2023 When Did You Quit Smoking? 16+yearssincelastjarrod colleenhanna Information not available 11/04/2023 Are There Any Guns Present In Your Home? No [id number] Information not available 05/27/2022 Do You Have A Humidifier? No Information not available 11/04/2023 Do You Use Insect Repellent Routinely? No Information not available 10/09/2024 Where Do You Live? SingleLevelHouse Information not available 11/04/2023 Do You Have Moisture Problems In Your Home? No Information not available 11/04/2023 What Was The Date Of Your Most Recent Tobacco Screening? 11/02/2024 Information not available 11/02/2024 How Many Children Do You Have? 3 Information not available 10/09/2024 Do You Have Any Pets? No Information not available 11/04/2023 What Is Your Relationship Status? Information not available 10/09/2024 Do You Use Your Seat Belt Or Car Seat Routinely? Yes Information not available 11/04/2023 Do You Have Smoke And Carbon Monoxide Detectors In Your Home? No Information not available 11/04/2023 Are You Passively Exposed To Smoke? No Information not available 11/04/2023 Do You Participate In Social Media? No Information not available 10/09/2024 Do You Use Sunscreen Routinely? No Information not available 11/04/2023 Have You Recently Traveled Abroad? No Information not available 11/04/2023 Do You Have Any Dietary Restrictions? No Information not available 11/04/2023 Sex: Male Functional Status Question Answer Note LastModified by Organizat ion Details LastModified Time Do you use any illicit or recreational drugs? No Information not available 11/04/2023 What is your level of alcohol consumption? None [id number] Information not available 05/27/2022 Do you or have you ever used smokeless tobacco? Former smokeless tobacco user over 30 years ago [id number] Information not available 05/27/2022 Are you currently employed? No Retired Information not available 11/04/2023 Have you been exposed to chemicals or toxins? not that aware of Information not available 11/02/2024 Do you or have you ever used e-cigarettes or vape? Never used electronic cigarettes [id number] Information not available 05/27/2022 What is your exercise level? Occasional Information not available 11/04/2023 Mental Status Question Answer Note LastModified by Organization D etails LastModified Time Do you feel stressed (tense, restless, nervous, or anxious, or unable to sleep at night)? [id number] Information not available 11/04/2023 Family History Relationship Description Onset Age of this Age Resolved Age Notes LastModified by Organization Details LastModified Time Sister Malignant neoplasm of breast [email or web address] Not available 2023 09:31:32 Notes:No diabetes Medical History Condition Response BLINDNESS N RHEUMATIC FEVER N KIDNEY STONES N CARPAL TUNNEL SYNDROME N OTHER # 1 N LUNG DISEASE/DISORDER N HISTORY OF DRUG ABUSE N RADIATION / CHEMOTHERAPY N COPD N Other # 2 N BLOOD DISEASES N SURGERY N PAST SPINAL SURGERY N SCHIZOPHRENIA N BOWEL PROBLEMS N DEPRESSION (INCLUDING POST ) N STROKE/TIA N LYMPHEDEMA N BENIGN PROSTATIC HYPERPLASIA N PARAPELGIA N OBESITY N GERD/NAUSEA N ANEURYSM N CORONARY ARTERY DISEASE (CAD) N USE OF BLOOD THINNERS N EMPHYSEMA N PERIPHERAL VASCULAR DISEASE N STOMACH ULCERS N BLOOD CLOTS N PAST HISTORY OF VEHICULAR ACCIDENT N GI PROBLEMS N CHF N NEUROPATHY N AIDS/HIV N HYPERTENSION N BLOOD TRANSFUSION N ANEMIA/BLOOD DISORDER N BIPOLAR DISORDER N BRONCHITIS N OSTEOARTHRITIS N TUBERCULOSIS N GLAUCOMA N FOOT PROBLEM N HEART VALVE DISORDERS N ALLERGIES/HAYFEVER N INFECTIOUS DISEASE N HEART ARRHYTHMIA N PROSTATE N INSOMNIA N PAST INTERVENTIONAL PAIN MANAGEMENT HIST ORY N HIGH CHOLESTEROL / HYPERLIPIDEMIA N PAST MEDICATION HISTORY N RHEUMATOID ARTHRITIS N HYPERTHYROIDISM N NEUROLOGICAL PROBLEMS N EDEMA N HYPOTHYROIDISM N CONSTIPATION N CAROTID BLOCKAGE N BACK / NECK PROBLEMS N HAVE YOU BEEN HOSPITALIZED OR SEEN IN [facility] IN THE PAST YEAR ? N BURSITIS N HERNIATED DISC N DIALYSIS N HISTORY WITH COMPLICATIONS WITH ANESTHES IA ? N FIBROMYALGIA N OSTEOPOROSIS N ARTHRITIS N RESPIRATORY PROBLEMS N NO SIGNIFICANT PAST MEDICAL HISTORY N PAST HISTORY OF FALL N PERIPHERAL NEUROPATHY N DIABETES, TYPE N HEARTBURN / REFLUX N AFIB N HEPATITIS / LIVER DISEASE N GOUT N ALZHEIMER'S DISEASE N PAIN N HERPES N HEADACHES/MIGRAINES N SEIZURES/EPILEPSY N DIZZINESS N HEAD TRAUMA OR INJURY N HEART DISEASE/HEART PROBLEMS N MULTIPLE SCLEROSIS N NEUROPSYCHOLOGICAL N CANCER: SPECIFY N CARDIAC ARRHYTHMIA N ANESTHESIA COMPLICATIONS N ATRIAL FIBRILLATION N AUTOIMMUNE DISEASE N Immunizations Vaccine Type Date Status Note Provider Nam e and Address Organization Details Recorded Time influenza, unspecified formulation 3 completed Not Available [facility] 03/12/2023 02:06:21 RSV, recombinant, protein subunit RSVpreF, adjuvant reconstituted, 0.5 mL, PF 4 completed Divine Guardado RN null, [facility] [employer] 06/09/2023 18:01:45 COVID-19, mRNA, LNP-S, PF, 50 mcg/0.5 mL 4 completed SOFIYA Cheney, [facility] 12/10/2023 08:32:02 influenza, unspecified formulation 4 completed SOFIYA Cheney, [facility] 12/10/2023 09:01:41 Tdap 4 completed Lissette Mckeon RN null, [facility] 12/20/2023 14:19:38 Td(adult) unspecified formulation 4 completed Not Available [facility] 11/20/2024 14:51:14 Influenza, high-dose, trivalent, PF 8 completed Not Available [facility] 11/20/2024 14:51:14 Influenza, high-dose, trivalent, PF 9 completed Not Available [facility] 11/20/2024 14:51:14 Influenza, high-dose, quadrivalent, PF 0 completed Not Available [facility] 11/20/2024 14:51:14 COVID-19, mRNA, LNP-S, PF, 100 mcg/0.5mL dose or 50 mcg/0.25mL dose 1 completed Not Available [facility] 11/20/2024 14:51:14 COVID-19, mRNA, LNP-S, PF, 100 mcg/0.5mL dose or 50 mcg/0.25mL dose 1 completed Not Available [facility] 11/20/2024 14:51:14 zoster recombinant 2 completed Not Available [facility] 11/20/2024 14:51:14 COVID-19, mRNA, LNP-S, PF, 100 mcg/0.5mL dose or 50 mcg/0.25mL dose 2 completed Not Available [facility] 11/20/2024 14:51:14 zoster recombinant 2 completed Not Available [facility] 11/20/2024 14:51:14 Influenza, high-dose, quadrivalent, PF 2 completed Not Available [facility] 11/20/2024 14:51:14 COVID-19, mRNA, LNP-S, bivalent, PF, 30 mcg/0.3 mL dose 2 completed Not Available [facility] 11/20/2024 14:51:14 COVID-19, mRNA, LNP-S, PF, 50 mcg/0.5 mL 3 completed Not Available [facility] 11/20/2024 14:51:14 COVID-19 Non-US Vaccine, UNSPECIFIED 1 completed Not Available [facility] 03/12/2023 02:06:21 Influenza, split virus, quadrivalent, preservative 1 completed Not Available [facility] 03/12/2023 02:06:21 Pneumococcal conjugate PCV 13 1 completed Not Available [facility] 03/12/2023 02:06:21 pneumococcal polysaccharide PPV23 8 completed Not Available [facility] 03/12/2023 02:06:21 Past Encounters Encounter ID Performer Location Encounter Start Date Encounter Closed Date Diagnosis/Indication Diagnosis SNOMED-CT Code Diagnosis ICD10 Code Diagnosis IMO Codes Diagnosis Note [id number] S[facility] ic[facility] Podiatry [place] [address] [place] [address] 07/11/2020 00:00:00 07/11/2020 14:32:14 [id number] [facility] Primary Care [place] [address] [place] [address] 10/07/2020 00:00:00 10/07/2020 09:12:[id number] [facility] Primary [facility] [place] [address] [place] [address] 04/09/2021 00:00:00 04/27/2021 21:32:[id number] [facility] Primary Care [place] [address] [facility] [address] [place] [address] 09/15/2021 00:00:00 09/15/2021 19:06:[id number] [facility] Primary Care [place] [address] [facility] [address] [place] [address] 10/08/2021 00:00:00 10/14/2021 14:05:[id number] [facility] Primary Care [place] [address] [facility] [address] [place] [address] 03/25/2022 00:00:00 03/25/2022 13:48:[id number] [facility] Primary Care [facility] [address] [facility] [facility] [place] [address] 04/08/2022 00:00:00 04/08/2022 08:47:08 [id number] Shira Francis [facility] [place] [address] [place] [address] 05/08/2022 00:00:00 05/08/2022 12:32:[id number] [facility] Primary Care [facility] [address] [facility] [address] [place] [address] 06/08/2022 08:58:49 06/08/2022 09:35:[id number] [facility] Primary Care [facility] [address] [facility] [address] [place] [address] 07/23/2022 12:01:25 07/23/2022 13:30:34 [id number] [facility] [place] [address] [place] [address] 08/07/2022 11:15:28 08/07/2022 14:38:56 Obstructive sleep apnea syndrome 96426556 G47.33 Split night sleep study 12/04/21 with AHI 32 in REM sleep and 21 in all other sleep stages.Oxy gen desaturati ons pre-PAP to 73%Optimal pressure 10cm H2O with normal AHI and oxygen saturation Download today with 93% use greater than 4 hoursDownl oad for 30 days with AHI 3.2He has good use and benefitOSA is well correctedE ncouraged 100% compliance with all sleepFollo w with PCM for labsAdvise d good sleep habits and patterns:- Set a goal for at least 7 to 8 hours of sleep time per day.-Use the bed mainly for sleep and to go to bed only when tired. If unable to fall asleep after 30 minutes, patient should get out of bed but should not engage in any activity that requires sustained mental alertness. -Maintain a regular bedtime and wake-up time even on weekends or days off of work.-Avoi d excessive naps during the daytime. If a nap is necessary, limit it to no more than 30 minutes.-M inimize environmen rosi noise, bright lights, and extremes in bedroom temperatur e.-Avoid alcohol, caffeinate d beverages, and nicotine products for at least 6 hours prior to bedtime.-A void strenuous exercise and large meals for at least 4 hours prior to bedtime.Di scussed supply cleaning and reordering He is aware of reportable signs and symptomsRT C in 6 months, PRN for concerns Snoring [id number] R06.83 Resolved [id number] Isabel Smith MD [facility] [place] [facility] [address] [place] [address] 10/14/2022 08:50:52 10/14/2022 09:56:15 Adult health examination 440591713 Z00.00 Colonoscop y 09/13 repeat 5 years-refe rral given Fasting labs up to date Covid booster in the fall Flu shot yearly Has completed pneumonia shots Has received shingrix x 2 Depression screening 171 491061 Z13.31 Screening for disorder 331414047 Z13.9 Screening for malignant neoplasm of colon 220806697 Z12.11 Essential hypertension 05653098 I10 Hyperlipidemia 53965664 E78.5 Z79.899 Diabetes mellitus 601401 09 E11.9 Sees [facility] vision [id number] T[facility] Pulmonolo gy Gregory [address] [place] [address] 02/12/2023 09:55:16 02/12/2023 10:17:45 Obstructive sleep apnea syndrome 75832275 G47.33 Split night sleep study 12/04/21 with AHI 32 in REM sleep and 21 in all other sleep stages.Oxy gen desaturati ons pre-PAP to 73%Optimal pressure 10cm H2O with normal AHI and oxygen saturation 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 If unable to fall asleep after 30 minutes, patient should get out of bed but should not engage in any activity that requires sustained mental alertness. -Maintain a regular bedtime and wake-up time even on weekends or days off of work.-Avoi d excessive naps during the daytime. If a nap is necessary, limit it to no more than 30 minutes.-M inimize environmen rosi noise, bright lights, and extremes in bedroom temperatur e.-Avoid alcohol, caffeinate d beverages, and nicotine products for at least 6 hours prior to bedtime.-A void strenuous exercise and large meals for at least 4 hours prior to bedtime.Di scussed supply cleaning and reordering He is aware of reportable signs and symptomsHe should follow up in one year Snoring 80488340 R06.83 Resolved [id number] Isabel Smith MD [facility] [address] [place] [address] 06/09/2023 08:44:56 06/09/2023 09:35:42 Skin lesion 37520797 L98.9 Obstructiv e sleep apnea syndrome 36864757 G47.33 [id number] Pancho Blackwood MD [facility] [place] [address] [address] 07/15/2023 08:43:38 07/16/2023 08:33:51 Periodic limb movement disorder 526031698 G47.61 D50.8 E83.42 Obstructiv e sleep apnea syndrome 21554168 G47.33 [id number] Pancho Blackwood MD [facility] [place] [address] [address] 08/05/2023 08:36:32 08/06/2023 08:48:09 Obstructive sleep apnea syndrome 81260117 G47.33 Iron deficiency 62009108 E61.[id number] [facility] Primary Care [address] [place] [address] 10/19/2023 08:48:29 10/19/2023 09:32:52 Adult health examination 884611488 Z00.00 Screening for disorder 545206346 Z13.9 Hyperlipid emia screening 821288452 Z13.220 Diabetes m ellitus screening 434079232 Z13.1 Thyroid di sorder screening 024059228 Z13.29 Anemia screening 8757280 07 Z13.[id number] [facility] Primary Care [address] [address] 10/28/2023 10:10:26 10/28/2023 10:23:05 [id number] [facility] Pulmonolo gy [address] [address] 11/04/2023 08:45:40 11/05/2023 09:04:28 Obstructive sleep apnea syndrome 14009926 G47.33 Iron deficiency 33700358 E61.1 [id number] TONG Turner-Letitia [facility] Primary Care [address] [address] 04/10/2024 10:04:49 04/10/2024 10:46:11 Diabetes mellitus 44060518 E11.9 Jardiance 10mg dailyMetfo rmin 1000mg BIDDoing well at this time, will refill meds as neededFoll ow-up in 6 months for Medicare Wellness. Essential hypertension 79468636 I10 136/80.Lis inopril 10mg daily.Marco Antonio lipscomb well at this time, will refill meds as neededFoll ow-up in 6 months for Medicare Wellness. Hyperlipidemia 52733308 E78.5 Z79.899 Lovastatin 20mg daily.Marco Antonio lipscomb well at this time, will refill meds as neededFoll ow-up in 6 months for Medicare Wellness. Atrial fibrillation 4943 6004 I48.91 Xarelto 20mg daily. [id number] Pancho Blackwood MD [facility] [address] 05/04/2024 08:16:36 05/04/2024 09:19:52 Obstructive sleep apnea syndrome 71320527 G47.33 Iron deficiency 06128769 E61.[id number] [facility] Primary Care [address] [address] 10/09/2024 13:53:45 10/09/2024 14:24:23 Adult health examination 592981159 Z00.00 Screening for disorder 651398548 Z13.9 [id number] Pancho Blackwood MD [address] [address] 11/02/2024 08:17:40 11/03/2024 13:10:22 Obstructive sleep apnea syndrome 16698813 G47.33 Iron deficiency 70635861 E61.[id number] [facility] Primary Care [address] [address] 11/20/2024 14:48:23 11/20/2024 15:36:27 Adult health examination 711479283 Z00.00 Discussed medication compliance and routine follow up.Discuss ed healthy diet and routine exercise.Franc ayalaiewed vaccine records and made recommenda tions as needed.Enc ouraged annual eye and dental exams, as well as twice yearly dental cleanings. Will check screening labs as listed below. Screening for disorder 836087769 Z13.9 Hyperlipid emia screening 683182793 Z13.220 Diabetes m ellitus screening 567671761 Z13.1 Thyroid di sorder screening 643297581 Z13.29 Anemia screening 5547926 07 Z13.0 Health Concerns Section Related Observation LastModified by Organization Detai ls LastModified Time None Recorded Concern Status LastModified by Organization Details LastModified Time None Recorded Advance Directives Directive None Recorded Payers Insurance Date Sequence Insurance Name Policy Number Policy [place] Covered Member ID [place] Member ID Guarantor Name 11/17/2024 1 [facility] (MEDICARE REPLACEMENT/A DVANTAGE - HMO) [id number] Ajit Hoffman [id number] Ajit Hoffman Notes Date Note Type Note Provider Name and Address Organization Details Recorded Time 04/10/2024 text/html ROS as noted in the HPI Patient is a 74 year old male that presents to the office for 6 month follow up. Patient reports he is doing well at this time and has no concerns. Patient reports he had labs drawn at [facility] in [place] on 03/16 that were ordered by his kidney specialist, Dr. Angel. Betzy Vyas, TONG-C [address] [address] [facility] [address], [place], [address], [facility] [employer] 04/12/2024 10:27:15 05/04/2024 text/html Primary care/Referring provider: TONG Antunez During the [facility] home sleep study on 10/24/21, AHI = 4.8. During the [facility] split sleep study on 12/04/21, sleep onset = 12 minutes, REM onset = 80 minutes, AHI = 21, REM AHI = 32, PLMI = 32. At home since 11/04/23, the patient uses a [employer] AirSense 11 autoset unit with heated humidification. The patient does not need the ramp to start low and go up slowly on the pressure anymore. There is some xerostomia in a.m. There is no hose/mask condensation with water. The patient wears a [employer] large Vitera full face mask without chin strap. There is no claustrophobia, no nostril/nose bridge irritation, no facial rash, no facial numbness, no nosebleeding. The patient feels more refreshed upon waking and daytime alertness is improved. Energy levels are sustained for the remainder of the day. At home, the patient sleeps from 10 pm to 5 am and wakes up without an alarm. Snoring: heavy, since 1970s.Snorting: yesChoking: noCoughing: noGasping: noGagging: noSighing: noWitnessed apnea: yesTwitching or jerking of leg(s), arm(s), body, head: yesTeeth grinding: noTeeth clenching: noSleeptalking: noSleepwalking: noSleep crying: noBedwetting: noTongue/lip/gum/cheek biting: noSleeping with open mouth: yesSleep paralysis: noHypnagogic hallucinations: noHypnopompic hallucinations: noVivid dreams: noDifficulty with sleep onset: noDifficulty with sleep maintenance: yesSleep interruptions: nocturia x 1Patient wakes up with: fatigue, xerostomiaDaytime cataplexy: noMorning hypersomnolence: noAfternoon hypersomnolence: yesCaffeine sources in diet: coffee 1 cup per day, chocolate 1/3 candy per day Associated medical and psychiatric conditions:Congestive heart failure: noCoronary artery disease: noMyocardial infarction: noHypertension: noArrhythmias: yesStroke: noBronchial asthma: noChronic obstructive pulmonary disease: noDepression: noBipolar disorder: noAnxiety: noPanic disorder: noPosttraumatic stress disorder: noAttention deficit and hyperactivity disorder: noObsessive Compulsive disorder: noSchizophrenia: noSchizoaffective disorder: noPersonality disorder: noChronic analgesic use: noChronic sedative/hypnotic use: no EPWORTH SLEEPINESS SCALE (ESS) CHANCE OF DOZING SCORE0 = would never doze1 = slight chance of dozing2 = moderate chance of dozing3 = high chance of dozing SITUATION AND CHANCE OF DOZINGSitting and reading - 0Watching television - 0Sitting inactive in a public place (e.g. a theater or meeting) - 0As a passenger in a car for an hour without a break - 0Lying down to rest in the afternoon when circumstances permit - 0Sitting and talking to someone - 0Sitting quietly after lunch without alcohol - 0In a car, while stopped for a few minutes in the traffic - 0TOTAL SCORE 0Subjectively, patient has no chance of dozing. Pancho Blackwood MD [address], [place] [address], [place], [address], [facility] [employer] [facility] 05/05/2024 14:05:05 10/09/2024 text/html Patient was not seen by the provider. JOHNSON Turner [address], [place] [address], [place], [address], [place] [facility] 10/09/2024 14:24:21 11/02/2024 text/html Primary care/Referring provider: Betzy Vyas, [employer] PROGRAMMER ANALY[employer] [phone] CC:My mouth is dry when I wake up, but not everyday. During the [facility] home sleep study on 10/24/21, AHI = 4.8. During the [facility] split sleep study on 12/04/21, sleep onset = 12 minutes, REM onset = 80 minutes, AHI = 21, REM AHI = 32, PLMI = 32. At home since 05/04/24, the patient uses a [employer]Med AirSense 11 autoset unit with heated humidification. The patient does not need the ramp to start low and go up slowly on the pressure anymore. There is some xerostomia in a.m. There is no hose/mask condensation with water. The patient wears a 5 CUPS and some sugar & [employer] large Vitera full face mask without chin strap. There is no claustrophobia, no nostril/nose bridge irritation, no facial rash, no facial numbness, no nosebleeding. The patient feels more refreshed upon waking and daytime alertness is improved. Energy levels are sustained for the remainder of the day. At home, the patient sleeps from 10 pm to 5 am and wakes up without an alarm. Snoring: heavy, since 1970s.Snorting: yesChoking: noCoughing: noGasping: noGagging: noSighing: noWitnessed apnea: yesTwitching or jerking of leg(s), arm(s), body, head: yesTeeth grinding: noTeeth clenching: noSleeptalking: noSleepwalking: noSleep crying: noBedwetting: noTongue/lip/gum/cheek biting: noSleeping with open mouth: yesSleep paralysis: noHypnagogic hallucinations: noHypnopompic hallucinations: noVivid dreams: noDifficulty with sleep onset: noDifficulty with sleep maintenance: yesSleep interruptions: nocturia x 1Patient wakes up with: fatigue, xerostomiaDaytime cataplexy: noMorning hypersomnolence: noAfternoon hypersomnolence: yesCaffeine sources in diet: coffee 1 cup per day, chocolate 1/3 candy per day Associated medical and psychiatric conditions:Congestive heart failure: noCoronary artery disease: noMyocardial infarction: noHypertension: noArrhythmias: yesStroke: noBronchial asthma: noChronic obstructive pulmonary disease: noDepression: noBipolar disorder: noAnxiety: noPanic disorder: noPosttraumatic stress disorder: noAttention deficit and hyperactivity disorder: noObsessive Compulsive disorder: noSchizophrenia: noSchizoaffective disorder: noPersonality disorder: noChronic analgesic use: noChronic sedative/hypnotic use: no EPWORTH SLEEPINESS SCALE (ESS) CHANCE OF DOZING SCORE0 = would never doze1 = slight chance of dozing2 = moderate chance of dozing3 = high chance of dozing SITUATION AND CHANCE OF DOZINGSitting and reading - 0Watching television - 0Sitting inactive in a public place (e.g. a theater or meeting) - 0As a passenger in a car for an hour without a break - 0Lying down to rest in the afternoon when circumstances permit - 0Sitting and talking to someone - 0Sitting quietly after lunch without alcohol - 0In a car, while stopped for a few minutes in the traffic - 0TOTAL SCORE 0Subjectively, patient has no chance of dozing. Pancho Blackwood MD [address], [place] [address], [place], [address], [employer] 11/02/2024 09:04:34 11/20/2024 text/html Patient is a 74 year old male that presents to the office for Medicare Wellness. labs- orderedColonoscopy- UTD (2022)LDCT- not neededVaccines UTD JOHNSON Turner [address], [place], [address], [employer] 11/20/2024 15:41:34
--- NOTE | 2025-03-10 10:33 | ED_ITS ---
HPI - Male Genitourinary General Chief complaint: Urogenital-Male Stated complaint: cannot urinate Time Seen by Provider: 03/10/25 09:48 Source: patient Mode of arrival: ambulatory Limitations: no limitations History of Present Illness HPI Narrative: 74 year with a history of hypertension, diabetes, atrial fibrillation on Xarelto here with the complaints of unable to urinate since last night. Patient states that for the past 6 months he has been having some difficulty urinating. He denies any fever or chills no history of nausea vomiting. Onset (ago): day(s) (1) Duration: constant Severity: moderate Relieving factors: urination Related Data Home Medications ?Medication ?Instructions ?Recorded ?Confirmed ?Last Taken ?Type empagliflozin 10 mg tablet 10 mg PO DAILY 12/31/2208/1802/08/23 History (Jardiance) lisinopril 10 mg tablet 10 mg PO DAILY 12/31/2208/1802/08/23 History lovastatin 20 mg tablet 20 mg PO DAILY 12/31/2208/1802/08/23 History metformin 500 mg tablet 500 mg PO BID 12/31/2212/3102/08/23 History rivaroxaban 20 mg tablet (Xarelto) 20 mg PO DAILY 08/1812/31/22 02/06/23 History Allergies Allergy/AdvReac Type Severity Reaction Status Date / Time No Known Allergies Allergy Verified 03/10/25 09:46 Review of Systems Review of Systems: All systems reviewed & are unremarkable except as noted in HPI and below Constitutional: Constitutional: Reports no additional constitutional complaints Eyes: Eyes: Reports no additional eye complaints ENT: Reports system reviewed and no additional complaints, except as documented Cardiovascular: Cardiovascular: Reports no additional cardiovascular complaints Respiratory: Respiratory: Reports no additional respiratory complaints Gastrointestinal: Gastrointestinal: Reports no additional gastrointestinal complaints Genitourinary: Genitourinary: Reports as per HPI Musculoskeletal: Musculoskeletal: Reports no additional musculoskeletal complaints PMFSH Social History Social History Smoking status: Never smoker Substance use type: does not use Living arrangements: other Additional living arrangements comments: with sp Exam Narrative: GENERAL: Well-appearing, well-nourished, and in no acute distress. HEAD: Normocephalic, atraumatic. EYES: PERRLA and EOMI. ENT: Nares clear, no rhinorrhea or epistaxis. Mucous membranes moist. NECK: Supple. CHEST: Clear to auscultation. No respiratory distress. HEART: Regular rate and rhythm. No murmur heard. Normal peripheral pulses. ABDOMEN: Soft, nontender, nondistended, normal active bowel sounds. EXTREMITIES: Normal range of motion. No edema. SKIN: Warm, dry, no rash. NEURO: No focal deficits. Alert and oriented x3. PSYCH: Normal mood and affect. Course Course Emergency Course: Patient had quite significant amount of urine doctor after voiding , bladder scan showed 8oo + in the bladder , a Thapa catheter had been placed feeling much better , i did inform him he has to keep the cath in for at least 48 hours and follow with Urology , he does feel comfortable going home. Vital Signs Vital signs: Vital Signs Temperature 36.4 C L 03/10/25 09:42 Pulse Rate 94 03/10/25 09:42 Respiratory Rate 16 03/10/25 09:42 Blood Pressure 154/84 H 03/10/25 09:42 Pulse Oximetry 100 03/10/25 09:42 Oxygen Delivery Room Air 03/10/25 09:42 Temperature 36.4 C L 03/10/25 09:42 Pulse Rate 94 03/10/25 09:42 Respiratory Rate 16 03/10/25 09:42 Blood Pressure 154/84 H 03/10/25 09:42 Pulse Oximetry 100 03/10/25 09:42 Oxygen Delivery Room Air 03/10/25 09:42 [facility] Narrative Medical decision making narrative: 74-year-old with a history of hypertension diabetes AFib here with unable to urinate exam is unremarkable mild suprapubic tenderness in the a bladder scan he and place a Thapa catheter. Differential Diagnosis Differential Diagnosis: uti , urinary retention, kidney stones Medical Records I have reviewed the following patient records and this information was taken into consideration when formulating the assessment and plan.: previous labs and previous ER visits Lab Data Labs: Lab Results 03/10/25 Range/Units 09:51 Urine Color Yellow (Yellow) Urine Appearance Clear (Clear) Urine pH 5.5 (5.0-9.0) Ur Specific [place] 1.015 (1.001-1.035) Urine Protein Negative (Negative) mg/dL Urine Glucose (UA) 3+ H (Negative) mg/dL Urine Ketones Negative (Negative) mg/dL Ur Blood (Man) Negative (Negative) Urine Nitrate Negative (Negative) Urine Bilirubin Negative (Negative) Urine Urobilinogen 0.2 (<2.0) mg/dL Leukocyte Esterase Rfl Negative (Negative) NEFTALY/UL Discharge Plan Discharge Clinical Impression: Acute urinary retention Patient Disposition: Home Condition: Stable Instructions: Urinary Retention in Men (ED) Additional Instructions: continue home medications, follow with urology in the next few days. Patient Language: [place] Prescriptions: No Action metformin 500 mg tablet 500 mg PO BID lisinopril 10 mg tablet 10 mg PO DAILY lovastatin 20 mg tablet 20 mg PO DAILY Xarelto 20 mg tablet 20 mg PO DAILY Jardiance 10 mg tablet 10 mg PO DAILY Follow-up/Referrals: Jarek Davies MD [Physician, Urology] UNKNOWN,DOCTOR [Primary Care Provider] Time of Disposition: 10:35
[2025-03-10 11:04] VITALS: BP 152/78; PULSE 76; RESP 18; TEMP 36.7; O2SAT 99
== END 2025-03-10 10:50 | disposition home or self-care (01) ==
PROVIDERS: Emergency Provider Family Medicine
DX: R33.9 Retention of urine, unspecified (principal); I48.91 Unspecified atrial fibrillation; I10 Essential (primary) hypertension; E11.9 Type 2 diabetes mellitus without complications; Z79.01 Long term (current) use of anticoagulants; Z79.899 Other long term (current) drug therapy; Z79.84 Long term (current) use of oral hypoglycemic drugs
CPT/HCPCS: 51702; 81003; 99283